=== PATIENT | female | born 1955 | race Caucasian/White ===

== ENCOUNTER 2018-06-17 08:49 | Emergency (ER) | payer BC ==
[~2018-06-17] VITALS: Ht 170.2 cm; Wt 77.1 kg
--- OUTSIDE RECORDS SUMMARY | 2018-06-17 08:51 | XMS REPORT | Encounter Summary ---
Author Organization Unknown Address [address] [place] [address] Phone [phone] Care Team Providers Care Gas Meter Repair Supervisor Name Role Phone Jimbo Barraza MD 3 [phone] Reason for Visit Medical Complaint Instructions 1. Urinary tract infectious disease urinary tract infection in women: care instructions phenazopyridine 200 mg tablet urinalysis, dipstick Macrobid 100 mg capsule Discussion Note Pt is in NAD; Verbalizes understanding of all instructions with no questions at this time. Plan of Care Patient Instructions Recommend proper hydration and frequent urination. Avoid douching, Recommend urinating after sexual intercourse. Recommend wipe front to back after urinating. Avoid using tubs. Take medications as prescribed. Return to clinic or follow up with your PCP or your urologist within 2-3 days if symptoms worsen as discussed. Reminders Provider Appointments None recorded. Lab Urinalysis, Dipstick 11/08/2016 [facility] Referral None recorded. Procedures None recorded. Surgeries None recorded. Imaging None recorded. Medications Name Start Date Macrobid 100 mg capsule Take 1 capsule every 12 hours by oral route as directed for 5 days. phenazopyridine 200 mg tablet Take 1 tablet 3 times a day by oral route as needed for 2 days. Medications Administered None recorded. Vitals Height Weight BMI Blood Pressure 5 ft 7 in 170 lbs 26.6 132/80 Lab Results Date Name Specimen Result Interpretation Description Value Range Status Address Urinalysis, Dipstick Color : Yellow [facility]: [address] [place] [address] Clarity : Cloudy [facility]: [address] [place] [address] Leukocytes : Large [facility]: [address] [place] [address] Nitrites : Positive [facility]: [address] [place] [address] Urobilinogen : Normal [facility]: [address] [place] [address] Protein : 100 [facility]: [address] [place] [address] Ph : 6.5 [facility]: [address] [place] [address] Blood : Large [facility]: [address] [place] [address] Specific Win[place] : 1.020 [facility]: [facility] Ketones : Negative [facility]: [facility] Bilirubin : Negative [facility]: [facility] Glucose Negative [facility]: [facility] Allergies Code Code System Name Reaction Severity Onset NKDA Problems None recorded. Procedures Date Name Performed by Kidney Endoscopy Information not available Hysterectomy Information not available Vaccine List None recorded. Social History Smoking Status Never Smoker Past Encounters 11/08/2016 Urinary Tract Infectious Disease Rakel Cruz, [employer]-C: [address] [place] [address], Ph. History of Present Illness [id number] Reported By: Patient HPI: Location: ; bladder. Quality: burning. Severity: moderate. Duration: ; 2 weeks ago. Onset/Timing: gradual. Context: no known exposure to STD, no prior history of STDs, sexually active, wipes anterior to posterior, voids after intercourse; h/o kidney disease (right). Pt follows with urology. Modifying factors ; none. Associated Symptoms: no fever/chills, no jaundice, no blood in the urine, no pain during urination, no vaginal discharge, no blisters on genitals, no rash on genitals, no muscle aches, no headache, flank pain, burning sensation during urination, urgency, feeling of incomplete emptying of bladder Review of Systems:ROS as noted in the HPI Review of Systems Basic Reported By: Patient Physical Exam Adult Basic, Adult Female Complete, Adult Male Complete Reported By: Patient Constitutional: General Appearance: healthy-appearing, well-nourished, well-developed. Level of Distress: NAD. Ambulation: ambulating normally Psychiatric: Mental Status: active and alert. Orientation: to time, to place, to person Eyes: Lids and Conjunctivae: non-injected, no pallor; no periorbital edema Neck: Neck: supple. Lymph Nodes: no cervical LAD Lungs: Respiratory effort: no dyspnea, no tachypnea, no use of accessory muscles, no intercostal retractions. Auscultation: breath sounds normal, good air movement Cardiovascular: Heart Auscultation: RRR, no murmurs Musculoskeletal:: Extremities: no edema Neurologic: Gait and Station: normal gait Abdomen: Bowel Sounds: normal. Inspection and Palpation: soft, non-distended, no tenderness, no guarding, no rebound tenderness, no masses, CVA tenderness. Hernia: none palpable
--- OUTSIDE RECORDS SUMMARY | 2018-06-17 08:51 | XMS REPORT | Encounter Summary ---
Author Organization Unknown Address [address] [place] [address] Phone [phone] Care Team Providers Care Ager Tender Name Role Phone Jimbo Barraza MD 3 [phone] Reason for Visit Medical Complaint Instructions 1. Dysuria painful urination (dysuria): care instructions urinalysis, dipstick culture, urine ciprofloxacin 500 mg tablet Discussion Note: None recorded. Plan of Care Patient Instructions take antibiotics as prescribed. increase fluids. otc tylenol or ibuprofen prn for pain. will contact patient when results of culture are finalized. follow up pcp Reminders Provider Appointments None recorded. Lab Urinalysis, Dipstick 12/10/2016 [facility] Culture, Urine 12/10/2016 [facility] Referral None recorded. Procedures None recorded. Surgeries None recorded. Imaging None recorded. Medications Name Start Date ciprofloxacin 500 mg tablet Take 1 tablet every 12 hours by oral route for 7 days. nitrofurantoin monohydrate/macrocrystals 100 mg capsule TK 1 C PO Q 12 H phenazopyridine 200 mg tablet Take 1 tablet 3 times a day by oral route as needed for 2 days. sulfamethoxazole 800 mg-trimethoprim 160 mg tablet TK 1 T PO BID Medications Administered None recorded. Vitals Height Weight BMI Blood Pressure 5 ft 7 in 170 lbs 26.6 kg/m2 122/74 mm[Hg] Lab Results Date Name Specimen Result Interpretation Description Value Range Status Address Urinalysis, Dipstick Color : Yellow [facility]: [address] [place] [address] Clarity : Cloudy [facility]: [address] [place] [address] Leukocytes : Trace [facility]: [address] [place] [address] Nitrites : Negative [facility]: [address] [place] [address] Urobilinogen : Normal [facility]: [address] [place] [address] Protein : Trace [facility]: [address] [place] [address] Ph : 5.0 [facility]: [address] [place] [address] Blood : Small [facility]: [address] [place] [address] Specific [place] : 1.005 [facility]: [facility] Ketones : Small [facility]: [facility] Bilirubin : Negative [facility]: [facility] Glucose Negative [facility]: [facility] Allergies Code Code System Name Reaction Severity Onset NKDA Problems None recorded. Procedures Date Name Performed by Kidney Endoscopy Information not available Hysterectomy Information not available Vaccine List None recorded. Social History Smoking Status Never Smoker Past Encounters 12/10/2016 Dysuria Quang Hook, [facility]-C: [address] [place] [address], Ph. History of Present Illness [id number] Reported By: Patient HPI: Location: urethra. Quality: pressure, burning. Severity: moderate. Duration: constant. Context: history of urine cultures/antibiotic treatment, wipes anterior to posterior, voids after intercourse. Associated Symptoms: no fever/chills, no flank pain, no jaundice, no blood in the urine, no pain during urination, no vaginal discharge, no blisters on genitals, no rash on genitals, no muscle aches, no headache, burning sensation during urination, urgency, urinary frequency Review of Systems:ROS as noted in the HPI Review of Systems Basic Reported By: Patient Physical Exam Adult Basic, Adult Female Complete Reported By: Patient Constitutional: General Appearance: healthy-appearing, well-nourished, well-developed. Level of Distress: NAD. Ambulation: ambulating normally Psychiatric: Mental Status: active and alert Lungs: Respiratory effort: no dyspnea, no tachypnea, no use of accessory muscles, no intercostal retractions. Auscultation: breath sounds normal Cardiovascular: Heart Auscultation: RRR, no murmurs Abdomen: Inspection and Palpation: soft, non-distended, no tenderness, no guarding, no rebound tenderness, no masses, no CVA tenderness
--- OUTSIDE RECORDS SUMMARY | 2018-06-17 08:51 | XMS REPORT | Continuity of Care Document ---
Author Author [facility] Interface Address Unknown Phone Unavailable Problems Problem Status Onset Date Classification Date Reported Comments Source Dysuria 12/10/2016 Diagnosis 12/10/2016 [facility] Urinary tract infectious disease 11/08/2016 Diagnosis 11/08/2016 [facility] Medications Medication Details Route Status Patient Instructions Ordering Provider Order Date Source NITROFURANTOIN, MACROCRYSTALS 25 MG / Nitrofurantoin, Monohydrate 75 MG Oral Capsule [Macrobid] Macrobid 100 mg capsule Take 1 capsule every 12 hours by oral route as directed for 5 days. Active [facility] Phenazopyridine hydrochloride 200 MG Oral Tablet phenazopyridine 200 mg tablet Take 1 tablet 3 times a day by oral route as needed for 2 days. Active [facility] Ciprofloxacin 500 MG Oral Tablet ciprofloxacin 500 mg tablet Take 1 tablet every 12 hours by oral route for 7 days. Active [facility] NITROFURANTOIN, MACROCRYSTALS 25 MG / Nitrofurantoin, Monohydrate 75 MG Oral Capsule nitrofurantoin monohydrate/macrocrystals 100 mg capsule TK 1 C PO Q 12 H Active [facility] Sulfamethoxazole 800 MG / Trimethoprim 160 MG Oral Tablet sulfamethoxazole 800 mg-trimethoprim 160 mg tablet TK 1 T PO BID Active [facility] Allergies, Adverse Reactions, Alerts Substance Category Reaction Severity Reaction type Status Date Reported Comments Source Immunizations Immunization Date Given Site Status Last Updated Comments Source Results Order Name Results Value Reference Range Date Interpretation Comments Source Urinalysis macro (dipstick) panel - Urine COLOR : Yellow 12/10/2016 [facility] Urinalysis macro (dipstick) panel - Urine CLARITY : Cloudy 12/10/2016 [facility] Urinalysis macro (dipstick) panel - Urine LEUKOCYTES : Trace 12/10/2016 [facility] Urinalysis macro (dipstick) panel - Urine NITRITES : Negative 12/10/2016 [facility] Urinalysis macro (dipstick) panel - Urine UROBILINOGEN : Normal 12/10/2016 [facility] Urinalysis macro (dipstick) panel - Urine PROTEIN : Trace 12/10/2016 [facility] Urinalysis macro (dipstick) panel - Urine pH : 5.0 12/10/2016 [facility] Urinalysis macro (dipstick) panel - Urine BLOOD : Small 12/10/2016 [facility] Urinalysis macro (dipstick) panel - Urine SPECIFIC GRAVITY : 1.005 12/10/2016 [facility] Urinalysis macro (dipstick) panel - Urine KETONES : Small 12/10/2016 [facility] Urinalysis macro (dipstick) panel - Urine BILIRUBIN : Negative 12/10/2016 [facility] Urinalysis macro (dipstick) panel - Urine GLUCOSE Negative 12/10/2016 [facility] Urinalysis macro (dipstick) panel - Urine COLOR : Yellow 11/08/2016 [facility] Urinalysis macro (dipstick) panel - Urine CLARITY : Cloudy 11/08/2016 [facility] Urinalysis macro (dipstick) panel - Urine LEUKOCYTES : Large 11/08/2016 [facility] Urinalysis macro (dipstick) panel - Urine NITRITES : Positive 11/08/2016 [facility] Urinalysis macro (dipstick) panel - Urine UROBILINOGEN : Normal 11/08/2016 [facility] Urinalysis macro (dipstick) panel - Urine PROTEIN : 100 11/08/2016 [facility] Urinalysis macro (dipstick) panel - Urine pH : 6.5 11/08/2016 [facility] Urinalysis macro (dipstick) panel - Urine BLOOD : Large 11/08/2016 [facility] Urinalysis macro (dipstick) panel - Urine SPECIFIC GRAVITY : 1.020 11/08/2016 [facility] Urinalysis macro (dipstick) panel - Urine KETONES : Negative 11/08/2016 [facility] Urinalysis macro (dipstick) panel - Urine BILIRUBIN : Negative 11/08/2016 [facility] Urinalysis macro (dipstick) panel - Urine GLUCOSE Negative 11/08/2016 [facility] Vital Signs Vital Sign Value Date Comments Source Diastolic (mm Hg) 74 12/10/2016 [facility] Height 67 12/10/2016 [facility] Systolic (mm Hg) 122 12/10/2016 [facility] Weight 170 12/10/2016 [facility] Diastolic (mm Hg) 80 11/08/2016 [facility] Height 67 11/08/2016 [facility] Systolic (mm Hg) 132 11/08/2016 [facility] Weight 170 11/08/2016 [facility] Encounters Location Location Details Encounter Type Encounter Number Reason For Visit Attending Provider ADM Date DC Date Status Source [place] - [facility] - [id number] JimenezP-C: [address] [place] [address], Ph. [id number] Rakel Cruz 11/08/2016 [facility] [place] - [facility] - [id number] Hernandez-C: [address] [place] [address], Ph. [id number] Quang Hook 12/10/2016 [facility] Procedures Procedure Code Date Perfomer Comments Source Kidney Endoscopy [facility] Hysterectomy [facility]
[2018-06-17] MEDS ORDERED: HYDROMORPHONE 2MG/ML 2 MG/ML ML IV ONE (09:20)
[2018-06-17] MEDS ORDERED: ONDANSETRON HCL INJ 2 MG/ML VIAL IV ONE (09:20)
[2018-06-17 09:59] LABS: BASOPHILS % 0.6 % (0.0-1.0); EOSINOPHILS # (AUTO) 0.2 (0.0-0.4); EOSINOPHILS % 3.4 % (0.0-6.0); HEMATOCRIT 38.7 % (34.2-44.1); HEMOGLOBIN 12.8 g/dL (12.0-16.0); LYMPHOCYTES # (AUTO) 0.9 (1.0-3.2); LYMPHOCYTES % 14.6 % (18.0-39.1); MEAN CORPUSCULAR HEMOGLOBIN 29.2 pg (28-32); MEAN CORPUSCULAR HGB CONC 33.1 g/dL (31-35); MEAN CORPUSCULAR VOLUME 88.4 fL (81-99); MONOCYTES # (AUTO) 0.5 (0.2-0.8); MONOCYTES % 7.5 % (4.4-11.3); NEUTROPHILS # (AUTO) 4.6 (2.1-6.9); NEUTROPHILS % 73.4 % (38.7-80.0); PLATELET COUNT 255 x10e3/uL (140-360); RED BLOOD COUNT 4.38 x10e6/uL (3.6-5.1)
[2018-06-17 10:02] LABS: ANION GAP 14.3 mmol/L (8-16); BLOOD UREA NITROGEN 12 mg/dL (7-26); BUN/CREATININE RATIO 16 (6-25); CALCIUM 9.1 mg/dL (8.4-10.2); CARBON DIOXIDE 24 mmol/L (22-29); CHLORIDE 102 mmol/L (98-107); CREATININE, SERUM 0.76 mg/dL (0.57-1.11); EST GLOMERULAR FILTRATION RATE > 60 ML/MIN (60-); GLUCOSE 122 mg/dL (74-118); POTASSIUM 3.3 mmol/L (3.5-5.1); SODIUM 137 mmol/L (136-145)
[2018-06-17 10:04] LABS: CLARITY,URINE CLEAR (CLEAR); COLOR,URINE YELLOW (YELLOW)
[2018-06-17 10:05] LABS: BILIRUBIN,URINE NEGATIVE (NEGATIVE); EPITHELIAL CELLS,URINE RARE /LPF; KETONES,URINE NEGATIVE (NEGATIVE); LEUKOCYTE ESTERASE ,URINE NEGATIVE (NEGATIVE); NITRITE,URINE NEGATIVE (NEGATIVE); PROTEIN,URINE DIPSTICK NEGATIVE (NEGATIVE); RBC,URINE 0-5 /HPF (0-5); URINE UROBILINOGEN 0.2 mg/dL (0.2 - 1)
--- NOTE | 2018-06-17 10:18 | Diagnostic Imaging Report ---
EXAM: CT Abdomen and Pelvis WITHOUT contrast INDICATION: ^Stone Protocol ^[id number] ^0926 ^Y COMPARISON: None. TECHNIQUE: Abdomen and pelvis were scanned utilizing a multidetector helical scanner from the lung base to the pubic symphysis without administration of IV contrast. Absence of intravenous contrast decreases sensitivity for detection of focal lesions and vascular pathology. Coronal and sagittal reformations were obtained. Routine protocol was performed. IV CONTRAST: None. ORAL CONTRAST: Water RADIATION DOSE: Total DLP: 592.9 mGy*cm Estimated effective dose: (DLP x 0.015 x size factor) mSv COMPLICATIONS: None FINDINGS: LINES and TUBES: None. LOWER THORAX: Unremarkable HEPATOBILIARY: No focal hepatic lesions. No biliary ductal dilation. GALLBLADDER: No radio-opaque stones or sludge. No wall thickening. SPLEEN: No splenomegaly. PANCREAS: No focal masses or ductal dilatation. ADRENALS: No adrenal nodules KIDNEYS/URETERS: Mild calyectasis in the inferior pole of the left kidney. No right hydronephrosis. Mild bilateral perinephric fat stranding, left greater than right. Mild rotation of the right kidney with a hilar pointing inferiorly. Low-attenuation 1.3 cm cyst in the upper pole. Outpouching within the cortex of the interpolar region of the left kidney may be due to a cyst. No stones. GI TRACT: No abnormal distention, wall thickening, or evidence of bowel obstruction. Diverticulosis in the ascending colon with adjacent linear fat stranding in the right upper quadrant on coronal image 42. Appendix is normal. PELVIC ORGANS/BLADDER: Unremarkable. LYMPH NODES: No lymphadenopathy. VESSELS: Unremarkable. PERITONEUM / RETROPERITONEUM: No free air or fluid. BONES: Unremarkable. SOFT TISSUES: Unremarkable. IMPRESSION: 1. Diverticulosis of the ascending colon with mild linear fat stranding in the right upper quadrant may represent early diverticulitis. 2. Mild rotation of the right kidney with small upper pole cyst. No calcified stones. 3. Focal outpouching of the lateral left kidney may be due to a cyst. Recommend ambulatory renal ultrasound for further evaluation. No calcified stones in the left kidney. Signed by: Dr. Desire Mahmood M.D. on 06/17/2018 10:14 AM
[2018-06-17 13:47] VITALS: BP 158/99
== END 2018-06-17 14:02 | disposition home or self-care (01) ==
LOC: ER 08:49
DX: R10.11 Right upper quadrant pain (principal); R11.0 Nausea; K57.32 Diverticulitis of large intestine without perforation or abscess without bleeding; M54.5 Low back pain; I10 Essential (primary) hypertension
CPT/HCPCS: 36415; 74176; 80048; 81001; 85025; 87086

== ENCOUNTER → 2018-11-15 | Outpatient (CLI) | payer MEDICARE, OTHER | LOC: MAMMO 09:39 | PROVIDERS: ATTEND Family Medicine | DX: Z12.31 Encounter for screening mammogram for malignant neoplasm of breast (principal) | CPT/HCPCS: 77067 ==

== ENCOUNTER → 2020-02-17 | Outpatient (CLI) | payer MEDICARE, OTHER ==
--- NOTE | 2020-02-17 14:42 | Diagnostic Imaging Report ---
EXAM: Bone density study HISTORY: Osteoporosis FINDINGS: LUMBAR SPINE: Bone mineral density measurement: 1.049 gm/cm2 Standard deviation from young adult population (T score): 0.0 Standard deviation for age adjusted population (Z score): 1.9 LEFT FEMORAL NECK: Bone mineral density measurement: 0.810 gm/cm2 Standard deviation from young adult population (T score): -1.1 Standard deviation for age adjusted population (Z score): 0.2 RIGHT FEMORAL NECK: Not provided. Dual FEMORAL NECK: Not applicable IMPRESSION: Normal bone density of the lumbar spine. Osteopenia of the left femoral neck. DIAGNOSTIC CRITERIA: Normal: BMD < 1 SD from young adult population. Osteopenia: BMD <1 to < 2.5 SD. Corresponds to a 1 - 2x increased risk of an osteoporotic fracture of the lumbar spine as compared to the young adult population. Osteoporosis: BMD > 2.5 SD corresponds to a 2x increased risk of an osteoporotic fracture of the lumbar spine as compared to the young adult population. Severe osteoporosis: Osteoporosis + one or more fragility fractures Signed by: Jarek Heller MD on 02/17/2020 2:39 PM
--- NOTE | 2020-02-19 13:42 | Diagnostic Imaging Report ---
#[id number] - MGSCRBIL #BILATERAL DIGITAL SCREENING MAMMOGRAM WITH CAD: 02/17/2020 CLINICAL: Routine screening. Comparison is made to exam dated: 11/15/2018 mammogram - [facility]. There are scattered fibroglandular elements in both breasts. Current study was also evaluated with a Computer Aided Detection (CAD) system. There are benign vascular calcifications and calcifications in both breasts. There also are benign lymph nodes in both breasts. There is a mole marker on the left breast. No significant masses, calcifications, or other findings are seen in either breast. There has been no significant interval change. IMPRESSION: BENIGN There is no mammographic evidence of malignancy. A 1 year screening mammogram is recommended. The patient will be notified by letter of the results. MARIANNE saba/bethel:02/19/2020 11:39:59 Counsel: Reena AZEVEDO(Kendra)(Luanne), [facility] letter sent: Compared to Prior B9 Mammogram BI-RADS: 2 Benign
== END ==
LOC: MAMMO 11:19
PROVIDERS: ATTEND Family Medicine
DX: Z12.31 Encounter for screening mammogram for malignant neoplasm of breast (principal); Z13.820 Encounter for screening for osteoporosis; Z78.0 Asymptomatic menopausal state
CPT/HCPCS: 77067; 77080

== ENCOUNTER → 2021-01-15 | Day surgery (SDC) | payer MEDICARE, OTHER ==
[2021-01-12 08:35] LABS: BASOPHILS % 0.7 % (0.0-1.0); EOSINOPHILS # (AUTO) 0.3 (0.0-0.4); EOSINOPHILS % 6.6 % (0.0-6.0); HEMATOCRIT 39.3 % (34.2-44.1); HEMOGLOBIN 12.9 g/dL (12.0-16.0); MEAN CORPUSCULAR HEMOGLOBIN 28.9 pg (28-32); MEAN CORPUSCULAR HGB CONC 32.8 g/dL (31-35); MEAN CORPUSCULAR VOLUME 87.9 fL (81-99); MONOCYTES # (AUTO) 0.5 (0.2-0.8); NEUTROPHILS # (AUTO) 2.5 (2.1-6.9); NEUTROPHILS % 58.5 % (38.7-80.0); PLATELET COUNT 262 x10e3/uL (140-360); RED BLOOD COUNT 4.47 x10e6/uL (3.6-5.1); RED CELL DISTRIBUTION WIDTH 14.3 % (11.7-14.4)
[~2021-01-15] MED LIST: AMLODIPINE BESYL5 MG PO; HYOSCYAMINE SULFATE 0.5 MG/ML INJ ONE; LIDOCAINE HCL 2% LOCAL INJ 5 ML SDV VIAL INJ ONE; MULTI-VITAMIN1 EACH PO; PROPOFOL IV EMULSION 10 MG/ML 20 ML VIAL ONE; VITAMIN D PO
[2021-01-15 10:30] VITALS: BP 128/86
== END | disposition home or self-care (01) ==
LOC: OR 06:08
PROVIDERS: ATTEND Internal Medicine Gastroenterology
DX: Z12.11 Encounter for screening for malignant neoplasm of colon (principal); D12.5 Benign neoplasm of sigmoid colon; D12.3 Benign neoplasm of transverse colon; K21.9 Gastro-esophageal reflux disease without esophagitis; I10 Essential (primary) hypertension; Z68.27 Body mass index [BMI] 27.0-27.9, adult; K57.30 Diverticulosis of large intestine without perforation or abscess without bleeding; K64.8 Other hemorrhoids; Z01.810 Encounter for preprocedural cardiovascular examination; Z01.812 Encounter for preprocedural laboratory examination; Z20.822 Contact with and (suspected) exposure to COVID-19; D64.9 Anemia, unspecified; Z96.0 Presence of urogenital implants
CPT/HCPCS: 36415; 45384; 45385; 85025; 88305; 93005; J1980; J2001; J2704; U0002; 45378

== ENCOUNTER → 2021-02-08 | Outpatient (CLI) | payer MEDICARE, OTHER ==
[~2021-02-08] MED LIST changes: -HYOSCYAMINE SULFATE 0.5 MG/ML INJ ONE; -LIDOCAINE HCL 2% LOCAL INJ 5 ML SDV VIAL INJ ONE; -PROPOFOL IV EMULSION 10 MG/ML 20 ML VIAL ONE
== END ==
LOC: US 08:44
PROVIDERS: ATTEND Family Medicine
DX: E04.1 Nontoxic single thyroid nodule (principal); N28.1 Cyst of kidney, acquired
CPT/HCPCS: 76536; 76700

== ENCOUNTER → 2021-10-28 | Outpatient (CLI) | payer MEDICARE, OTHER | LOC: RAD 09:56 | PROVIDERS: ATTEND Family Medicine | DX: R91.8 Other nonspecific abnormal finding of lung field (principal); U09.9 Post COVID-19 condition, unspecified | CPT/HCPCS: 71046 ==

== ENCOUNTER → 2022-11-08 | Outpatient (CLI) | payer MEDICARE, OTHER | LOC: MAMMO 08:12 | PROVIDERS: ATTEND Family Medicine | DX: Z12.31 Encounter for screening mammogram for malignant neoplasm of breast (principal); M85.88 Other specified disorders of bone density and structure, other site | CPT/HCPCS: 77067; 77080 ==

== ENCOUNTER → 2022-12-01 | Outpatient (CLI) | payer MEDICARE, OTHER | LOC: MAMMO 09:35 | PROVIDERS: ATTEND Family Medicine | DX: N60.02 Solitary cyst of left breast (principal) ==

== ENCOUNTER 2023-06-01 16:45 | Emergency (ER) | payer MEDICARE, OTHER ==
[~2023-06-01] VITALS: Ht 170.2 cm; Wt 78.6 kg
[2023-06-01] MEDS ORDERED: IOPAMIDOL 370 MG/ML 100 ML INFUS..BTL INJ ONE (17:37)
[2023-06-01] MEDS ORDERED: CEFDINIR300 MG PO (18:39)
[2023-06-01] MEDS ORDERED: DICYCLOMINE HCL20 MG PO (18:39)
[2023-06-01 19:02] VITALS: O2SAT 98
== END 2023-06-01 19:02 | disposition home or self-care (01) ==
LOC: FSED 16:55
DX: R10.31 Right lower quadrant pain (principal); N30.90 Cystitis, unspecified without hematuria; R35.0 Frequency of micturition
CPT/HCPCS: 74177; 80048; 80076; 81003; 85025; 99284; Q9967

== ENCOUNTER → 2024-04-19 | Day surgery (SDC) | payer MEDICARE, OTHER ==
[2024-04-16 08:52] LABS: BASOPHILS # (AUTO) 0.1 (0.0-0.1); BASOPHILS % 0.9 % (0.0-1.0); EOSINOPHILS # (AUTO) 0.4 (0.0-0.4); EOSINOPHILS % 6.4 % (0.0-6.0); HEMATOCRIT 41.8 % (34.2-44.1); HEMOGLOBIN 13.4 g/dL (12.0-16.0); LYMPHOCYTES # (AUTO) 1.2 (1.0-3.2); LYMPHOCYTES % 20.2 % (18.0-39.1); MEAN CORPUSCULAR HEMOGLOBIN 29.7 pg (28-32); MEAN CORPUSCULAR HGB CONC 32.1 g/dL (31-35); MEAN CORPUSCULAR VOLUME 92.7 fL (81-99); MONOCYTES # (AUTO) 0.7 (0.2-0.8); MONOCYTES % 11.2 % (4.4-11.3); NEUTROPHILS # (AUTO) 3.6 (2.1-6.9); NEUTROPHILS % 61.1 % (38.7-80.0); PLATELET COUNT 208 x10e3/uL (140-360); RED BLOOD COUNT 4.51 x10e6/uL (3.6-5.1); RED CELL DISTRIBUTION WIDTH 13.7 % (11.7-14.4)
[~2024-04-19] MED LIST changes: +CEFDINIR300 MG PO; +DICYCLOMINE HCL20 MG PO; +FENTANYL CITRATE/PF 100MCG/2 ML INJ ONE; +HYOSCYAMINE SULFATE 0.5 MG/ML INJ ONE; +LIDOCAINE HCL 2% LOCAL INJ 5 ML SDV VIAL INJ ONE; +LOSARTAN POTASS25 MG PO; +METOPROLOL SUCC25 MG PO; +PROPOFOL IV EMULSION 10 MG/ML 20 ML VIAL ONE; +PROPOFOL IV EMULSION 10 MG/ML 50 ML VIAL IV ONE
[2024-04-19] MEDS: LACTATED RINGER'S 1,000 ML ONE (07:10)
[2024-04-19 08:49] VITALS: TEMP 97
[2024-04-19 09:12] VITALS: BP 160/90; PULSE 65; RESP 18; O2SAT 100
== END | disposition home or self-care (01) ==
LOC: OR 06:48
PROVIDERS: ATTEND Internal Medicine Gastroenterology
DX: Z09 Encounter for follow-up examination after completed treatment for conditions other than malignant neoplasm (principal); D12.0 Benign neoplasm of cecum; D12.3 Benign neoplasm of transverse colon; K64.8 Other hemorrhoids; K57.30 Diverticulosis of large intestine without perforation or abscess without bleeding; I10 Essential (primary) hypertension; K21.9 Gastro-esophageal reflux disease without esophagitis; R00.1 Bradycardia, unspecified; Z87.442 Personal history of urinary calculi; Z87.440 Personal history of urinary (tract) infections; Z01.810 Encounter for preprocedural cardiovascular examination; Z01.812 Encounter for preprocedural laboratory examination
CPT/HCPCS: 36415; 45385; 85025; 88305; 93005; J1980; J2003; J2704 ×2; J3010; J7121; 45378

== ENCOUNTER → 2024-04-26 | Outpatient (REF) | payer MEDICARE, OTHER ==
[~2024-04-26] MED LIST changes: -FENTANYL CITRATE/PF 100MCG/2 ML INJ ONE; -HYOSCYAMINE SULFATE 0.5 MG/ML INJ ONE; -LIDOCAINE HCL 2% LOCAL INJ 5 ML SDV VIAL INJ ONE; -PROPOFOL IV EMULSION 10 MG/ML 20 ML VIAL ONE; -PROPOFOL IV EMULSION 10 MG/ML 50 ML VIAL IV ONE
== END ==
LOC: MAMMO 08:59
PROVIDERS: ATTEND Family Medicine
DX: Z12.31 Encounter for screening mammogram for malignant neoplasm of breast (principal)
CPT/HCPCS: 77067